=== PATIENT | male | born 1970 | race Caucasian/White ===

== ENCOUNTER → 2016-11-15 | Outpatient (CLI) | payer BC ==
--- NOTE | 2016-11-15 09:40 | RADIOLOGY REPORT (SQ) ---
EXAM DESCRIPTION: U/S ABDOMEN LIMITED W/O DOP COMPLETED DATE/TIME: 11/15/2016 8:48 am REASON FOR STUDY: ABNORMAL RESULTS OF LIVER FUNCTION STUDIES R94.5 ABNORMAL RESULTS OF LIVER FUNCTI ON STUDIES COMPARISON: None. TECHNIQUE: Dynamic and static grayscale images acquired of the abdomen and recorded on PACS. Additio nal selected color Doppler and spectral images recorded. LIMITATIONS: None. FINDINGS: PANCREAS: Midline pancreas unremarkable LIVER: Normal size, diffuse increased echogenicity from fatty infiltration or diffuse hepatocellular disease. No focal masses. LIVER VASCULATURE: Normal directional flow of the main portal vein and hepatic veins. GALLBLADDER: Contracted. No gross wall thickening, stones, or pericholecystic fluid ULTRASOUND-DETECTED GAMBLE'S SIGN: Negative. INTRAHEPATIC DUCTS AND COMMON DUCT: CBD and intrahepatic ducts normal caliber. No filling defects. INFERIOR VENA CAVA: Normal flow. AORTA: No aneurysm. RIGHT KIDNEY: Normal size. Normal echogenicity. No solid or suspicious masses. No hydronephrosis. No calcifications. PERITONEAL AND RIGHT PLEURAL SPACE: No ascites or effusions. OTHER: No other significant findings. IMPRESSION: Echogenic liver from diffuse hepatocellular disease Contracted gallbladder. No gross gallstones TECHNICAL DOCUMENTATION: JOB ID: [id number] [employer]- All Rights Reserved
== END ==
LOC: RAD 08:06
PROVIDERS: ATTEND Internal Medicine Gastroenterology
DX: R94.5 Abnormal results of liver function studies (principal); K82.0 Obstruction of gallbladder
CPT/HCPCS: 76705

== ENCOUNTER → 2017-11-03 | Day surgery (SDC) | payer BC ==
--- NOTE | 2017-11-03 12:07 | RADIOLOGY REPORT (SQ) ---
EXAM DESCRIPTION: MRI RT UPPER JOINT WITH COMPLETED DATE/TIME: 11/03/2017 10:49 am REASON FOR STUDY: PAIN IN R SHOULDER M25.511 PAIN IN RIGHT SHOULDER COMPARISON: Plain radiographs TECHNIQUE: Right shoulder images acquired and stored on PACS. Oblique coronal, oblique sagittal, and axial imaging to include fat sensitive sequences as T1, water sensitive sequences as FST2/STIR, and contrast sensitive sequences as FST1. LIMITATIONS: None. FINDINGS: JOINT DISTENTION: Adequate distention for interpretation. BONE MARROW AND CORTEX: Normal. No significant osteophytes. No edema or defects. AC JOINT: Type 1 acromion.. Marked hypertrophic changes of the AC joint with reactive edema. Large o steophytes. GLENOHUMERAL JOINT: No subluxation or dislocation. No focal chondral defects or reactive bone changes . ROTATOR CUFF: Marked tendinopathy and thickening of the supraspinatus and superior infraspinatus. Bu rsal surface partial tear of the supraspinatus. Peritendinitis. Atrophy of the teres minor. LABRUM AND BICEPS LABRAL COMPLEX: Type 2 slap tear of the superior labrum. The distal biceps in its normal anatomic location. INFERIOR LABRAL COMPLEX: Bony glenoid and labrum intact. IGHL intact without thickening or tear. No p aralabral cysts. ADJACENT SOFT TISSUES: No masses or nodes. OTHER: No other significant finding. IMPRESSION: Marked tendinopathy and bursal surface partial tear of the supraspinatus with peritendin itis. Atrophy only of the teres minor. Type 2 slap tear of the superior labrum. TECHNICAL DOCUMENTATION: JOB ID: [id number] [employer]- All Rights Reserved Reading location - IP/workstation name: [email or web address]
--- NOTE | 2017-11-03 12:09 | RADIOLOGY REPORT (SQ) ---
EXAM DESCRIPTION: ARTHRO SHOULDER INJECTION; FLUORO/NEEDLE PLACEMENT COMPLETED DATE/TIME: 11/03/2017 10:10 am REASON FOR STUDY: PAIN IN R SHOULDER COMPARISON: None. EXAM PARAMETERS: LIMITATIONS: None. OPERATING PHYSICIAN/PA: Hailey FLUOROSCOPY TIME: 12 seconds NUMBER OF IMAGES: 1 JOINT: Shoulder LATERALITY: Right APPROACH: Posterior ANESTHESIA: 7 mL 1% Lidocaine. LOCALIZING CONTRAST TYPE AND AMOUNT: 1mL Omnipaque 300 DIAGNOSTIC CONTRAST TYPE AND AMOUNT: 12mL Prohance solution PRE-INJECTION PAIN LEVEL: N/A POST-INJECTION PAIN LEVEL: N/A CROSS-SECTIONAL IMAGING MODALITY: MRI OTHER: none PROCEDURE: Procedure, risks, benefits and alternatives explained to patient who then gave written co nsent. The patient was then moved to the fluoroscopic room, and placed on the table in appropriate po sition. The right shouldermarked. Time-out called. Correct marking verified. Entry site marked using fluorosc opic guidance. Site prepped and draped using sterile technique. Local anesthesia achieved using injection. Hypoderm ic needle introduced into the joint space under direct fluoroscopic visualization. Non-ionic contrast instilled to confirm intra-articular position. Additional diagnostic contrast instilled. Needle sanjuanita kassie and entry site covered with sterile bandage. No immediate complications noted. FINDINGS: No significant pathology noted on images during and post-injection. IMPRESSION: SUCCESSFUL NEEDLE PLACEMENT AND INJECTION OF right shoulder NO SIGNIFICANT IMAGING FINDINGS. COMMENT: Quality ID #145: Final reports for procedures using fluoroscopy that document radiation exp osure indices, or exposure time and number of fluorographic images (if radiation exposure indices are not available) TECHNICAL DOCUMENTATION: JOB ID: [id number] [employer]- All Rights Reserved Reading location - IP/workstation name: [email or web address]
--- NOTE | 2017-11-03 12:09 | RADIOLOGY REPORT (SQ) ---
EXAM DESCRIPTION: ARTHRO SHOULDER INJECTION; FLUORO/NEEDLE PLACEMENT COMPLETED DATE/TIME: 11/03/2017 10:10 am REASON FOR STUDY: PAIN IN R SHOULDER COMPARISON: None. EXAM PARAMETERS: LIMITATIONS: None. OPERATING PHYSICIAN/PA: Hailey FLUOROSCOPY TIME: 12 seconds NUMBER OF IMAGES: 1 JOINT: Shoulder LATERALITY: Right APPROACH: Posterior ANESTHESIA: 7 mL 1% Lidocaine. LOCALIZING CONTRAST TYPE AND AMOUNT: 1mL Omnipaque 300 DIAGNOSTIC CONTRAST TYPE AND AMOUNT: 12mL Prohance solution PRE-INJECTION PAIN LEVEL: N/A POST-INJECTION PAIN LEVEL: N/A CROSS-SECTIONAL IMAGING MODALITY: MRI OTHER: none PROCEDURE: Procedure, risks, benefits and alternatives explained to patient who then gave written co nsent. The patient was then moved to the fluoroscopic room, and placed on the table in appropriate po sition. The right shouldermarked. Time-out called. Correct marking verified. Entry site marked using fluorosc opic guidance. Site prepped and draped using sterile technique. Local anesthesia achieved using injection. Hypoderm ic needle introduced into the joint space under direct fluoroscopic visualization. Non-ionic contrast instilled to confirm intra-articular position. Additional diagnostic contrast instilled. Needle sanjuanita kassie and entry site covered with sterile bandage. No immediate complications noted. FINDINGS: No significant pathology noted on images during and post-injection. IMPRESSION: SUCCESSFUL NEEDLE PLACEMENT AND INJECTION OF right shoulder NO SIGNIFICANT IMAGING FINDINGS. COMMENT: Quality ID #145: Final reports for procedures using fluoroscopy that document radiation exp osure indices, or exposure time and number of fluorographic images (if radiation exposure indices are not available) TECHNICAL DOCUMENTATION: JOB ID: [id number] [employer]- All Rights Reserved Reading location - IP/workstation name: [email or web address]
== END ==
LOC: RAD 09:38
PROVIDERS: ATTEND Orthopaedic Surgery Sports Medicine
DX: M25.511 Pain in right shoulder (principal)
CPT/HCPCS: 73222; 77002; 23350; A9576

== ENCOUNTER → 2018-04-08 | Day surgery (SDC) | payer BC ==
[~2018-04-08] MED LIST: LIDOCAINE 1% INJ-PF (10 MG/ML) 30 ML SDV ONE
--- NOTE | 2018-04-08 09:49 | RADIOLOGY REPORT (SQ) ---
EXAM DESCRIPTION: ARTHRO SHOULDER INJECTION; FLUORO/NEEDLE PLACEMENT COMPLETED DATE/TIME: 04/08/2018 9:31 am REASON FOR STUDY: IMPINGEMENT SYNDROME OF LEFT SHOULDER (M75.42) M75.42 IMPINGEMENT SYNDROME OF LEF T SHOULDER COMPARISON: MRI 11/03/2017 right shoulder FLUOROSCOPY TIME: 14 seconds 1 digital radiographic image saved to PACS. LIMITATIONS: None. PROCEDURE: Procedure, risks, benefits and alternatives explained to patient who then gave written co nsent. The posterior left glenohumeral joint at the shoulder was marked and a time out was called for correct procedure verification. Posterior entry site marked using fluoroscopic guidance. Shoulder prepped and draped using sterile technique. Local anesthesia achieved using 8 mL of 1% lidocaine inj ection. 22 gauge spinal needle introduced into the joint space under direct fluoroscopic visualizati on. Non-ionic contrast instilled to confirm intra-articular position. Dilute gadolinium solution then injected. Needle removed and entry site covered with sterile bandage. No immediate complications no shanell. TECHNIQUE: Digital images acquired during fluoroscopy and stored on PACS. Patient immediately take n to the MR suite for additional imaging. INJECTION LOCATION: Posterior left glenohumeral joint CONTRAST TYPE AND AMOUNT: 1 mL of Omnipaque 300 was injected to confirm intra-articular needle placem ent followed by 10 mL of dilute gadolinium for MR arthrogram IMPRESSION: SUCCESSFUL NEEDLE PLACEMENT AND INJECTION FOR LEFT SHOULDER MR ARTHROGRAM USING POSTERIO R APPROACH. COMMENT: Quality ID 145: Final reports for procedures using fluoroscopy that document radiation exp osure indices, or exposure time and number of fluorographic images (if radiation exposure indices are not available) TECHNICAL DOCUMENTATION: JOB ID: [id number] [employer]- All Rights Reserved Reading location - IP/workstation name: [facility]
--- NOTE | 2018-04-08 09:49 | RADIOLOGY REPORT (SQ) ---
EXAM DESCRIPTION: ARTHRO SHOULDER INJECTION; FLUORO/NEEDLE PLACEMENT COMPLETED DATE/TIME: 04/08/2018 9:31 am REASON FOR STUDY: IMPINGEMENT SYNDROME OF LEFT SHOULDER (M75.42) M75.42 IMPINGEMENT SYNDROME OF LEF T SHOULDER COMPARISON: MRI 11/03/2017 right shoulder FLUOROSCOPY TIME: 14 seconds 1 digital radiographic image saved to PACS. LIMITATIONS: None. PROCEDURE: Procedure, risks, benefits and alternatives explained to patient who then gave written co nsent. The posterior left glenohumeral joint at the shoulder was marked and a time out was called for correct procedure verification. Posterior entry site marked using fluoroscopic guidance. Shoulder prepped and draped using sterile technique. Local anesthesia achieved using 8 mL of 1% lidocaine inj ection. 22 gauge spinal needle introduced into the joint space under direct fluoroscopic visualizati on. Non-ionic contrast instilled to confirm intra-articular position. Dilute gadolinium solution then injected. Needle removed and entry site covered with sterile bandage. No immediate complications no shanell. TECHNIQUE: Digital images acquired during fluoroscopy and stored on PACS. Patient immediately take n to the MR suite for additional imaging. INJECTION LOCATION: Posterior left glenohumeral joint CONTRAST TYPE AND AMOUNT: 1 mL of Omnipaque 300 was injected to confirm intra-articular needle placem ent followed by 10 mL of dilute gadolinium for MR arthrogram IMPRESSION: SUCCESSFUL NEEDLE PLACEMENT AND INJECTION FOR LEFT SHOULDER MR ARTHROGRAM USING POSTERIO R APPROACH. COMMENT: Quality ID 145: Final reports for procedures using fluoroscopy that document radiation exp osure indices, or exposure time and number of fluorographic images (if radiation exposure indices are not available) TECHNICAL DOCUMENTATION: JOB ID: [id number] [employer]- All Rights Reserved Reading location - IP/workstation name: [facility]
--- NOTE | 2018-04-08 12:52 | RADIOLOGY REPORT (SQ) ---
EXAM DESCRIPTION: MRI LT UPPER JOINT WITH COMPLETED DATE/TIME: 04/08/2018 10:03 am REASON FOR STUDY: IMPINGEMENT SYNDROME OF LEFT SHOULDER (M75.42) M75.42 IMPINGEMENT SYNDROME OF LEF T SHOULDER COMPARISON: None. TECHNIQUE: Post arthrogram left shoulder images acquired and stored on PACS. Oblique coronal, obliqu e sagittal, and axial imaging to include fat sensitive sequences as T1, water sensitive sequences as FST2/STIR, and contrast sensitive sequences as FST1. LIMITATIONS: None. FINDINGS: JOINT DISTENTION: Adequate distention for interpretation. No intra-articular loose bodies . No leakage injected contrast into the subacromial/subdeltoid bursa BONE MARROW AND CORTEX: No marrow signal abnormalities worrisome for occult fracture or aggressive ma rrow replacement process AC JOINT: Type II acromion. Bulky acromioclavicular joint bony spurring is present with mild marrow e mateo in the distal clavicle and acromion. There is mild narrowing of the subacromial space with trac e fluid in the subacromial/subdeltoid bursa without gadolinium from bursitis GLENOHUMERAL JOINT: No subluxation or dislocation. No focal chondral defects or reactive bone changes . ROTATOR CUFF: Partial thickness undersurface tearing of the posterior edge supraspinatus/ anterior ed ge infraspinatus is present. Moderate anterior supraspinatus tendinopathy. Subscapularis intact. LABRUM AND BICEPS LABRAL COMPLEX: Normal signal in the rotator interval without tear of the superior glenohumeral ligament. Mild increased intrinsic signal of the intra-articular long head biceps tendo n from tendinopathy. Superior labrum intact. Distal biceps in normal anatomic location in bicipital groove. No paralabral cysts. INFERIOR LABRAL COMPLEX: Bony glenoid and labrum intact. IGHL intact without thickening or tear. No p aralabral cysts. ADJACENT SOFT TISSUES: No masses or nodes. OTHER: No other significant finding. IMPRESSION: Acromioclavicular joint hypertrophy narrowing of the subacromial space, mild bursitis in the subacromial/subdeltoid bursa, and tendinopathy with partial-thickness undersurface tearing of th e distal supra and infraspinatus tendons. TECHNICAL DOCUMENTATION: JOB ID: [id number]- All Rights Reserved Reading location - IP/workstation name: [email or web address]
== END ==
LOC: RAD 08:21 → EDSTATUS 09:00
PROVIDERS: ATTEND Orthopaedic Surgery Sports Medicine
DX: M75.42 Impingement syndrome of left shoulder (principal); M75.52 Bursitis of left shoulder; M75.112 Incomplete rotator cuff tear or rupture of left shoulder, not specified as traumatic
CPT/HCPCS: 73222; 77002; 23350; A9576; J3490

== ENCOUNTER → 2018-06-12 | Outpatient (CLI) | payer BC ==
[2018-06-12 10:58] LABS: ABSOLUTE BASOPHILS # (AUTO) 0.1 10^3/uL (0.0-0.2); ABSOLUTE EOSINOPHILS # (AUTO) 0.4 10^3/uL (0.0-0.6); ABSOLUTE LYMPHOCYTES (AUTO) 2.5 10^3/uL (0.5-4.7); ABSOLUTE MONOCYTES (AUTO) 0.8 10^3/uL (0.1-1.4); ABSOLUTE NEUT (AUTO) 4.7 10^3/uL (1.7-8.2); BASOPHILS % (AUTO) 0.8 % (0-2); EOSINOPHILS % (AUTO) 4.3 % (0-6); HEMOGLOBIN 15.2 g/dL (13.5-17.0); LYMPHOCYTES % (AUTO) 29.6 % (13-45); MEAN CORPUSCULAR HEMOGLOBIN 32.5 pg (27.0-33.4); MEAN CORPUSCULAR HGB CONC 35.5 g/dL (32.0-36.0); MEAN CORPUSCULAR VOLUME 92 fl (80-97); MONOCYTES % (AUTO) 9.4 % (3-13); PLATELET COUNT 200 10^3/uL (150-450); RED BLOOD COUNT 4.69 10^6/uL (4.35-5.55); RED CELL DISTRIBUTION WIDTH 13.6 % (11.5-14.0); SEGMENTED NEUTROPHILS % (AUTO) 55.9 % (42-78); TOTAL CELLS COUNTED % (AUTO) 100 %; WHITE BLOOD COUNT 8.4 10^3/uL (4.0-10.5)
[2018-06-12 11:22] LABS: ALANINE AMINOTRANSFERASE 106 U/L (21-72); ALBUMIN 4.7 g/dL (3.5-5.0); ALKALINE PHOSPHATASE 89 U/L (38-126); ANION GAP 10 (5-19); ASPARTATE AMINO TRANSFERASE 71 U/L (17-59); BILIRUBIN,DIRECT 0.3 mg/dL (0.0-0.4); BILIRUBIN,TOTAL 0.7 mg/dL (0.2-1.3); BLOOD UREA NITROGEN 17 mg/dL (7-20); CALCIUM 9.7 mg/dL (8.4-10.2); CARBON DIOXIDE 27 mmol/L (22-30); CHLORIDE 106 mmol/L (98-107); GLUCOSE 102 mg/dL (75-110); SODIUM 143.4 mmol/L (137-145); TOTAL PROTEIN 7.2 g/dL (6.3-8.2)
== END ==
LOC: OD 10:18
PROVIDERS: ATTEND Physician Assistant
DX: Z11.2 Encounter for screening for other bacterial diseases (principal); I10 Essential (primary) hypertension
CPT/HCPCS: 36415; 80053; 85025; 87070